=== PATIENT | female | born 1975 | race American Indian/Alaskan Native ===

== ENCOUNTER 2017-11-27 07:35 | Day surgery (SDC) | payer BC, OTHER ==
[~2017-11-27] VITALS: Ht 154.9 cm; Wt 136.1 kg
--- NOTE | ~2017-11-27 | OR ---
[facility] [address] [place], [place] [address] Draft DATE OF OPERATION: 11/27/2017 SURGEON: Joanie Mayorga MD PREOPERATIVE DIAGNOSES: Menometrorrhagia, morbid obesity. POSTOPERATIVE DIAGNOSES: Menometrorrhagia, morbid obesity, pending pathology. PROCEDURE: Attempted hysteroscopy, D and C. ANESTHESIA: General LMA. ESTIMATED BLOOD LOSS: Minimal. DRAINS: None. INDICATIONS AND FINDINGS: The patient is a 42-year-old female, 2, para 1, SAB 1, who is using the for control, who has been having abnormal bleeding for the last three years. She believes her periods were normal up until three years ago. At which point, then she did not have any bleeding for a year and then, but once the following year and then was had prolonged episodes of heavy bleeding. The patient is also morbidly obese with a BMI of over 50. At the time of surgery, exam under anesthesia revealed a probable normal-size uterus that was difficult secondary to her body habitus. Hysteroscopy was attempted, but the top of the uterus could not be evaluated given her morbid obesity and the difficulty reaching the top of the uterus. Hysteroscopy was then abandoned and D and C was done with a small amount of tissue found. DESCRIPTION OF PROCEDURE: The patient was prepped and draped in the dorsal lithotomy position. The [place] speculum was placed into the posterior cul-de-sac given her morbid obesity and the Karen was used to view the anterior lip of the cervix and was grasped with a single-tooth tenaculum. The cavity sounded to approximately 8 cm in length. The endocervical canal was then dilated to a #8 dilator. The MyoSure device was placed, but PATIENT NAME: EPIFANIO VERGARA OPERATIVE REPORT DATE OF : 73 REPORT #: [id number] PHYSICIAN: JOANIE MAYORGA MD PCP: CHENG CRUZ REPORT IS CONFIDENTIAL AND NOT TO BE RELEASED WITHOUT AUTHORIZATION [facility] [address] [place], [place] [address] Draft it could not be placed up to the top of the uterus as the kept it from going deep enough into the vagina. Because of this, cystoscopy was abandoned and a D and C was done using a sharp curette. Small amount of tissue was obtained with a sharp curette. I did feel that the top of the cavity was accessed using the curette, however. Following this, the tenaculum was removed. There was no evidence of ongoing bleeding from the tenaculum site. The weighted speculum was removed. The patient was taken to the recovery room in good condition. MD LE Marquez/SHAMAR /[id number] cc: [facility] Copies: [facility] ~ PATIENT NAME: EPIFANIO VERGARA OPERATIVE REPORT DATE OF : 73 REPORT #: [id number] PHYSICIAN: JOANIE MAYORGA MD PCP: CHENG CRUZ REPORT IS CONFIDENTIAL AND NOT TO BE RELEASED WITHOUT AUTHORIZATION
[~2017-11-27 07:35] MED LIST: CELEBREX200 MG PO; FOLIC ACID1 MG PO; IBU800 MG PO; IBUPROFEN800 MG PO; IRON18 MG PO; NORCO 10-325 T1 EACH PO; NORCO 5-325 TA1 EACH PO; ORTHO EVRA PAT1 EACH TD; OXYCODONE-ACET1 EAC1 PO; POTASSIUM CHLO20 ME1 PO; RANITIDINE HCL150 MG PO; VITAMIN D5000 UNIT PO; ZOFRAN ODT8 MG SL
--- NOTE | 2017-11-27 11:49 | NUR ---
11/27/17 1149 Bina Epperson 1136 PT ARRIVED TO PACU ON 10L VIA MASK, PT SITTING IN HIGH FOWLERS AND UPPER WHEEZE NOTED. PT REACTIVE TO TACTILE STIMULI AND ENCOURAGED TO DEEP BREATH AND COUGH. 1142 BREAHTING TREATMENT START BY SUPERINTENDENT REFUSE DISPOSAL. PT REORIENTED TO PACU. 1148 PT ABLE TO FOLLOW INSTRUCTIONS TO COUGG. PT DENIES NAUSEA AND PAIN. UPPER WHEEZE DECREASED.
--- NOTE | 2017-11-27 12:10 | NUR ---
ICED WATER GIVEN. CALL LIGHT W/IN REACH. FAMILY @ BS.
--- NOTE | 2017-11-27 12:17 | NUR ---
HARD COPY PRESCRIPTION GIVEN TO .
[2017-11-27] MEDS ORDERED: PROVERA10 MG PO (12:26)
--- NOTE | 2017-11-27 14:35 | NUR ---
LE 1405: PT UP TO BR W/RN STANDBY. PT AMBULATES WELL AND DENIES DIZZINESS. PT VOIDS 300 ML BLOOD TINGED URINE AND REQ ELEUTERIO PAD. PT REQ DC HOME. DC INSTRUCTIONS GIVEN IN PRESENCE OF FAMILY AND ALL VERBALIZE UNDERSTANDING. PT DRESSES SELF IN PRESENCE OF FAMILY AND TRANSFERS SELF TO AND THEN PERSONAL VEHICLE WELL.
== END 2017-11-27 14:20 | disposition home or self-care (01) ==
LOC: DS 07:35
PROVIDERS: Obstetrics & Gynecology
PROC: 0UDB7ZX Extraction of Endometrium, Via Natural or Artificial Opening, Diagnostic (ICD-10-PCS; principal; 2017-11-27 11:15)
DX: N85.8 Other specified noninflammatory disorders of uterus (principal); N92.1 Excessive and frequent menstruation with irregular cycle; M06.9 Rheumatoid arthritis, unspecified; K21.9 Gastro-esophageal reflux disease without esophagitis; G47.33 Obstructive sleep apnea (adult) (pediatric); G89.29 Other chronic pain; E66.01 Morbid (severe) obesity due to excess calories; Z87.891 Personal history of nicotine dependence; Z68.43 Body mass index [BMI] 50.0-59.9, adult; Z79.899 Other long term (current) drug therapy
CPT/HCPCS: 00952; J1100; J1885; J2250; J2405; J2704; J2765; J3010; J7120

== ENCOUNTER 2018-06-23 06:54 | Emergency (ER) | payer BC, OTHER ==
[~2018-06-23] VITALS: Ht 154.9 cm; Wt 127.0 kg
--- OUTSIDE RECORDS SUMMARY | ~2018-06-23 | XMS | Clinical Summary ---
Demographics + + + | Address | [address] | | | [place] [address] | + + + | Home Phone | | + + + | Preferred Language | Unknown | + + + | Marital Status | | + + + | Congregational Affiliation | 1041 | + + + | Race | Unknown | + + + | Ethnic Group | Unknown | + + + Author + + + | Author | [facility] | | | and [place] | + + + | Organization | [facility] | | | and [place] | + + + | Address | Unknown | + + + | Phone | Unavailable | + + + Support + + +---------+ + | Name | Relationship | Address | Phone | + + +---------+ + | Paul Monroy | ECON | Unknown | | + + +---------+ + | Jessica Tavarez | ECON | Unknown | | + + +---------+ + Care Team Providers + +------+ + | Care Senior Professional Services Consultant Name | Role | Phone | + +------+ + | Keiran Clay PA-C | PP | | + +------+ + Allergies No Known Allergies Current Medications + + +-------+---------+------+------+-------+ | Prescription | Sig. | Disp. | Refills | Star | End | Statu | | | | | | t | Date | s | | | | | | Date | | | + + +-------+---------+------+------+-------+ | ferrous sulfate | Take 325 mg by mouth | | | 09/1 | | Activ | | 325 mg tablet | 3 times daily (with | | | 4/20 | | e | | | meals). | | | 12 | | | + + +-------+---------+------+------+-------+ | fluocinonide | apply to affected | | | 09/ | | Activ | | (LIDEX) 0.05 % | area two times daily | | | 4/20 | | e | | ointment | | | | 12 | | | + + +-------+---------+------+------+-------+ | folic acid 1 mg | Take 1 mg by mouth | | | 09/1 | | Activ | | tablet | Daily. | | | 4/20 | | e | | | | | | 12 | | | + + +-------+---------+------+------+-------+ | multivitamin | | | | 09/1 | | Activ | | (THERAGRAN) per | | | | 4/20 | | e | | tablet | | | | 12 | | | + + +-------+---------+------+------+-------+ | B Complex Vitamins | 1 by mouth two times | | | 05/09 | | Activ | | (B COMPLEX-B12) | daily | | | 420 | | e | | TABS | | | | 12 | | | + + +-------+---------+------+------+-------+ | Cholecalciferol | Take 2,000 Units by | | | 05/09 | | Activ | | ( VITAMIN D3) 2000 | mouth 2 times daily. | | | 4/20 | | e | | UNITS CAPS | | | | 12 | | | + + +-------+---------+------+------+-------+ | naproxen | Take 500 mg by mouth | | | | | Activ | | (NAPROSYN) 500 mg | 2 times daily (with | | | | | e | | tablet | breakfast & | | | | | | | | dinner). | | | | | | + + +-------+---------+------+------+-------+ Active Problems + + + | Problem | Noted Date | + + + | FIBROMYALGIA | 05/22/2011 | + + + | SPINAL STENOSIS, LUMBAR | | + + + | LUMBAR DISC DISPLACEMENT | | + + + | DEGENERATIVE JOINT DISEASE, LUMBAR SPINE | | + + + | DEGENERATIVE DISC DISEASE, LUMBAR SPINE | | + + + | BACK PAIN, LUMBAR | | + + + | SOMATIC DYSFUNCTION, SPINE, SACRAL | | + + + | THORACIC/LUMBOSACRAL NEURITIS/RADICULITIS UNSPEC | | + + + Family History + + +------+ + | Medical History | Relation | Name | Comments | + + +------+ + | Other (see comment) | Maternal | | Alcoholism | | | Grandfath | | | | | er | | | + + +------+ + | Other (see comment) | Maternal | | Diabetes, Arthritis | | | Grandmoth | | | | | er | | | + + +------+ + | Other (see comment) | Maternal | | Alcoholism | | | Uncle | | | + + +------+ + | Other (see comment) | Mother | | Diabetes, Cancer on the mother's side of | | | | | the family, | + + +------+ + + +------+--------+ + | Relation | Name | Status | Comments | + +------+--------+ + | Maternal Grandfather | | | | + +------+--------+ + | Maternal Grandmother | | | | + +------+--------+ + | Maternal Uncle | | | | + +------+--------+ + | Mother | | | | + +------+--------+ + Social History + +-------+ +--------+------+ | Tobacco Use | Types | Packs/Day | Years | Date | | | | | Used | | + +-------+ +--------+------+ | Never Assessed | | | | | + +-------+ +--------+------+ + +---+---+---+ | Smokeless Tobacco: | | | | | Never Used | | | | + +---+---+---+ + + +---------+ + | Alcohol Use | Drinks/We | oz/Week | Comments | | | ek | | | + + +---------+ + | Yes | | | Socially | + + +---------+ + + + + | Sex Assigned at | Date Recorded | | | | + + + | Not on file | | + + + Last Filed Vital Signs + + + + | Vital Sign | Reading | Time Taken | + + + + | Blood Pressure | 108/74 | 01/22/2013 1439 PDT | + + + + | Pulse | 83 | 01/22/20131438 PDT | + + + + | Temperature | - | - | + + + + | Respiratory Rate | 16 | 01/22/20131438 PDT | + + + + | Oxygen Saturation | 98% | 01/22/20131438 PDT | + + + + | Inhaled Oxygen | - | - | | Concentration | | | + + + + | Weight | 108.9 kg (240 lb) | 01/22/20131438 PDT | + + + + | Height | 156.2 cm (5' 1.5") | 01/22/20131438 PDT | + + + + | Body Mass Index | 44.61 | 01/22/20131438 PDT | + + + + Plan of Treatment + + + + + | Health Maintenance | Due Date | Last Done | Comments | + + + + + | Vaccine: | | | | | Dtap/Tdap/Td (1 - | 3 | | | | Tdap) | | | | + + + + + | Cervical Cancer | | | | | Screening (Pap) | 4 | | | + + + + + | Vaccine: Influenza | | | | | (#1) | 8 | | | + + + + + Results Not on filefrom Last 3 Months Insurance + +--------+ +--------+ +---------+ | Payer | Benefi | Subscriber | Type | Phone | Address | | | t Plan | ID | | | | | | / | | | | | | | Group | | | | | + +--------+ +--------+ +---------+ | HEALTHCOMP | HEALTH | [id number] | PPO | [phone] | | | COMP | | | [phone] | | | | FIRST | | | | | | | CHOICE | | | | | + +--------+ +--------+ +---------+ | HEALTH | IHS | [id number] | Indemn | | | | SERVICE | YELLOW | | ity | | | | | HAWK | | | | | + +--------+ +--------+ +---------+ + +--------+ +--------+ + + | Guarantor Name | Accoun | Relation to | Date | Phone | Billing Address | | | t Type | Patient | of | | | | | | | | | | + +--------+ +--------+ + + | BEBE ROCHA | Person | Self [birth year] | Work: | [address] | | [place] | [address] | | 1975 | [phone] | [place] [address] | | | hai | | | [phone] Home: | | | | | | | | | | | | | | [phone] | | | | | | | [phone] | | + +--------+ +--------+ + +
--- OUTSIDE RECORDS SUMMARY | ~2018-06-23 | XMS | Clinical Summary ---
Demographics + + + | Address | [address] | | | [place] [address] | + + + | Home Phone | | + + + | Preferred Language | Unknown | + + + | Marital Status | | + + + | Evangelical Affiliation | 1041 | + + + | Race | Unknown | + + + | Ethnic Group | Unknown | + + + Author + + + | Author | [facility] | | | and [place] | + + + | Organization | [facility] | | | and [place] | [...] Team Providers + +------+ + | Care Patient Monitor Name | Role | Phone | + +------+ + | Kieran Clay PA-C | PP | | + [...] +--------+ +---------+ | HEALTHCOMP | HEALTH | [id number] | PPO | [phone] | | | | COMP | | | [phone] | | | | FIRST | | | | | | | CHOICE | | | | | + +--------+ +--------+ +---------+ | HEALTH | IHS | [id number] | Indemn | | | | SERVICE [...] [place] | [address] | | 1975 | [phone] | [place] [address] | | | hai | | | [phone] Home: | | | | | | | | | | | | | | [phone] | | | | | | | [phone] | | + +--------+ +--------+ + +
[~2018-06-23 06:54] MED LIST changes: +PROVERA10 MG PO
--- OUTSIDE RECORDS SUMMARY | 2018-06-23 06:56 | XMS ---
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 Roya VISIT COUNT (12 MO.) [address] [facility] TOTAL 1 NOTE: Visits indicate total known visits. ED/UCC VISIT TRACKING (12 MO.) 06/23/2018 06:[address] [facility] [place] TYPE: Emergency COMPLAINT: - BACK PAIN/NON INJURY INPATIENT VISIT TRACKING (12 MO.) No inpatient visits to display in this time frame [email or web address]
[2018-06-23] MEDS ORDERED: PREDNISONE20 MG PO (09:56)
[2018-06-23] MEDS ORDERED: CYCLOBENZAPRINE10 MG PO (09:56)
== END 2018-06-23 10:15 | disposition home or self-care (01) ==
LOC: ED 06:54
DX: M54.5 Low back pain (principal); G89.29 Other chronic pain; Z90.49 Acquired absence of other specified parts of digestive tract; Z87.891 Personal history of nicotine dependence; Z79.899 Other long term (current) drug therapy
CPT/HCPCS: 81001; 96372; 99283-25; J1885; J7512

== ENCOUNTER 2020-06-03 12:05 | Day surgery (SDC) | payer BC, OTHER ==
[~2020-06-03] VITALS: Ht 154.9 cm; Wt 127.3 kg
[~2020-06-03 12:05] MED LIST changes: +CYCLOBENZAPRINE10 MG PO; +PREDNISONE20 MG PO
--- NOTE | 2020-06-03 13:52 | NUR ---
06/03/20 1352 Lisha Brand 5857- PT ARRIVES TO PACU AWAKE AND TALKING ABOUT HER DAUGHTER. PT REPORTS NO PAIN OR NAUSEA. RESP EVEN AND UNLABORED. OXYGEN SAT HIGH 90'S TO 100% ON RA.
--- NOTE | 2020-06-03 14:31 | EKG ---
[facility] [address] [facility] [place], [place] [address] Signed Normal sinus rhythm Low voltage QRS Inferior-posterior infarct , age undetermined Abnormal ECG No previous ECGs available Confirmed by ALISSA GROVES DO ([id number]) on 06/03/2020 2:31:37 PM Electronically Signed By: ALISSA GROVES DO 06/03/20 1431 PATIENT NAME: EPIFANIO VERGARA Electrocardiogram DATE OF : 73 PHYSICIAN: ALISSA GROVES DO REPORT #: [id number] REPORT IS CONFIDENTIAL AND NOT TO BE RELEASED WITHOUT AUTHORIZATION
--- NOTE | 2020-06-04 17:20 | OR ---
[facility] [address] [place], [place] [address] Signed DATE OF OPERATION: 06/03/2020 SURGEON: Didier Lake MD PREOPERATIVE DIAGNOSES: 1. Epigastric abdominal pain. 2. Gastroesophageal reflux disease. POSTOPERATIVE DIAGNOSES: 1. Small hiatal hernia. 2. Mild diffuse gastritis. PROCEDURES: EGD with CLOtest and biopsies of the antrum. ESTIMATED BLOOD LOSS: None. INDICATIONS: Bebe is a 45-year-old female with a body mass index of 55. She also requires daily narcotics for her chronic low back pain. She was having trouble with epigastric abdominal pain and acid reflux. She responded quite nicely to omeprazole. Her gallbladder and her appendix were removed in 1999. Because of ongoing symptoms, particularly when lying supine, she was asked to see me for upper endoscopy. This would be her 1st endoscopy. In the office, I gave her a pamphlet on upper endoscopy and we looked at it together in detail. She understands the nature of the test along with the risks including, but not limited to gas bloating, crampy abdominal pain, bleeding, perforation requiring surgery, and missed diagnosis. We also discussed the need for IV conscious sedation. Given her very round full face, heavy jaw, very thick neck, and heavy chest and abdomen, we asked that an anesthesia provider help us with increased monitoring sedation with propofol. That proved to be a mares decision. She had expressed understanding and wished to proceed. PROCEDURE NOTE: Bebe was taken into our endoscopy suite and placed in a supine semi-recumbent position. A bite block was utilized for the case. She was given IV sedation with propofol per our nurse spa host. She required constant airway control and management per our nurse spa host. The adult gastroscope was introduced and advanced under direct visualization of the camera out into the third portion of the duodenum, under direct visualization of the camera without difficulty. The duodenum and pyloric channel were Electronically Signed By: DIDIER LAKE MD 06/04/20 1720 PATIENT NAME: BEBE VERGARA OPERATIVE REPORT DATE OF : 73 REPORT #: [id number] PHYSICIAN: DIDIER LAKE MD PCP: [facility] REPORT IS CONFIDENTIAL AND NOT TO BE RELEASED WITHOUT AUTHORIZATION [facility] [address] [place] [address] Signed unremarkable. The stomach showed mild diffuse erythematous changes. We took a biopsy of the antrum for CLOtest as well as pathologic review. Upon retroflexion of scope, she appears to have a very small hiatal hernia. The scope was withdrawn up through the area of the GE junction, which was compliant without stricture. There were no gastric or esophageal varices. She has minimal disruption to the Z-line. There was no Heart's mucosa. No distal esophagitis. The middle and upper esophagus were unremarkable. After this, the gas was suctioned out and the gastroscope removed. Bebe tolerated her procedure quite well. RECOMMENDATIONS: Bebe will follow up in my office in 7 to 14 days to review her results. Didier Lake MD ALB/MODL /[id number] cc: Chart Filed Incomplete Lisha Lake MD Copies: CHART FILED INCOMPLETE LISHA CRUZ ANDREW L MD ~ Electronically Signed By: DIDIER LAKE MD 06/04/20 1720 PATIENT NAME: BEBE VERGARA OPERATIVE REPORT DATE OF : 73 REPORT #: [id number] PHYSICIAN: DIDIER LAKE MD PCP: [facility] REPORT IS CONFIDENTIAL AND NOT TO BE RELEASED WITHOUT AUTHORIZATION
--- NOTE | 2020-06-07 12:15 | PATH ---
[facility] [address] [place], [place] [address] Signed SPECIMEN(S): A ANTRUM/PYLORUS BIOPSY SPECIMEN SOURCE: A. ANTRUM/PYLORUS BIOPSY CLINICAL HISTORY: Esophagogastroduodenoscopy. Preop: Epigastric abdominal pain, acid reflux. Postop: Gastritis, small hiatal hernia. MICROSCOPIC DESCRIPTION: Histologic sections of all submitted blocks are examined by light microscopy. These findings, together with the gross examination, support the pathologic diagnosis. FINAL PATHOLOGIC DIAGNOSIS: Antrum / pylorus, biopsy: - Mild to moderate non-specific chronic gastritis. - Negative for Helicobacter pylori by HE. - Negative for intestinal metaplasia, dysplasia, or malignancy. DS:[facility]:C2NR GROSS DESCRIPTION: The specimen, labeled "DW," and designated on the requisition "antrum/pylorus biopsy," is received in formalin and consists of one fragment of pink-frank tissue (0.3 x 0.2 x 0.2 cm). The specimen is submitted entirely in cassette (A1). AC (under the direct supervision of a pathologist The Gross Description was prepared using a voice recognition system. The report was reviewed for accuracy; however, sound-alike word errors, addition and/or deletions may occur. If there is any question about this report, please contact Client Services. PERFORMING LABORATORY: The technical component was performed by [facility], [address] [place] [id number] (Group Leader [employer] Processing: Jennifer Cantu MD; CLIA# [id number]). Professional interpretation was performed by [facility], [facility], [address] [place] [address] (CLIA#: [id number]). Diagnostician: Dc Santos MD Pathologist Electronically Signed 06/07/2020 PATIENT NAME: EPIFANIO VERGARA PATHOLOGY DATE OF : 73 REPORT #: [id number] PHYSICIAN: [facility] PCP: [facility] REPORT IS CONFIDENTIAL AND NOT TO BE RELEASED WITHOUT AUTHORIZATION [address] [place], [place] [address] Signed Copies: ~ PATIENT NAME: EPIFANIO VERGARA PATHOLOGY DATE OF : 73 REPORT #: [id number] PHYSICIAN: [facility] PCP: [facility] REPORT IS CONFIDENTIAL AND NOT TO BE RELEASED WITHOUT AUTHORIZATION
== END 2020-06-03 14:20 | disposition home or self-care (01) ==
LOC: OPS 12:05 → DS 12:05 → OPS 13:00
PROVIDERS: ATTEND Colon & Rectal Surgery
PROC: 0DB68ZZ Excision of Stomach, Via Natural or Artificial Opening Endoscopic (ICD-10-PCS; principal; 2020-06-03 13:00)
DX: K21.9 Gastro-esophageal reflux disease without esophagitis (principal); K44.9 Diaphragmatic hernia without obstruction or gangrene; K29.50 Unspecified chronic gastritis without bleeding; G89.29 Other chronic pain; M54.5 Low back pain; E66.9 Obesity, unspecified; R06.83 Snoring; R06.02 Shortness of breath; Z90.49 Acquired absence of other specified parts of digestive tract; Z79.891 Long term (current) use of opiate analgesic; Z80.0 Family history of malignant neoplasm of digestive organs; Z68.43 Body mass index [BMI] 50.0-59.9, adult
CPT/HCPCS: 84703; 86677; 93005; 93010; J2001; J2704; J7121

== ENCOUNTER 2021-12-28 21:37 | Emergency (ER) | payer BC, OTHER ==
[~2021-12-28] VITALS: Ht 154.9 cm; Wt 145.6 kg
--- OUTSIDE RECORDS SUMMARY | 2021-12-28 21:39 | XMS ---
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 EEdwina VISIT COUNT (12 MO.) 1 [facility]o TOTAL 1 NOTE: Visits indicate total known visits. ED/UCC VISIT TRACKING (12 MO.) 12/28/2021 21:37 [facility] [place] TYPE: Emergency COMPLAINT: - SOB, MUSCLE CRAMPS INPATIENT VISIT TRACKING (12 MO.) No inpatient visits to display in this time frame [email or web address]
[2021-12-28] MEDS ORDERED: PAXLOVID 300-11 EACH PO (21:54)
[2021-12-28] MEDS ORDERED: OMEPRAZOLE40 MG PO (21:54)
[2021-12-29] MEDS ORDERED: CYCLOBENZAPRINE10 MG PO ×2 (00:33→01:04)
== END 2021-12-29 01:11 | disposition home or self-care (01) ==
LOC: ED 21:37
DX: U07.1 COVID-19 (principal); M62.838 Other muscle spasm; Z79.899 Other long term (current) drug therapy
CPT/HCPCS: 36415; 71045; 80053; 81001; 82553; 83690; 83735; 85025; 99285-25; J7121

== ENCOUNTER 2024-12-25 06:30 | Day surgery (SDC) | payer BC, OTHER ==
[~2024-12-25] VITALS: Ht 154.9 cm; Wt 144.9 kg
[~2024-12-25 06:30] MED LIST changes: +LACTATED RINGER'S 1,000 ML IV SCH; +OMEPRAZOLE40 MG PO; +PAXLOVID 300-11 EACH PO
[2024-12-25 06:48] VITALS: BP 152/79
[2024-12-25] MEDS ORDERED: LIDOCAINE HCL 1% 5 ML SDV INJ ONE (07:00)
[2024-12-25] MEDS ORDERED: IBLOOD GLUCOSE TEST STRIP 1 EA TEST VI PRN ×2 (07:00→10:00)
[2024-12-25] MEDS ORDERED: CEFAZOLIN SODIUM 3 GM in SODIUM CHLORIDE 0.9% 100 ML IV SCH (07:00)
[2024-12-25] MEDS ORDERED: KETOROLAC TROMETHAMINE 30 MG/ML VIAL ONE ×2 (07:43→08:17)
[2024-12-25] MEDS ORDERED: fentaNYL citrate 100 MCG/2 ML VIAL ONE (08:16)
[2024-12-25] MEDS ORDERED: ACETAMINOPHEN 1,000 MG/100 ML VIAL ONE (08:16)
[2024-12-25] MEDS ORDERED: LIDOCAINE HCL 2% 5 ML SDV ONE (08:16)
[2024-12-25] MEDS ORDERED: HYDROCODONE/ACETA 5/325 TAB PO PRN (09:15)
[2024-12-25] MEDS ORDERED: MIDAZOLAM HCL 2 MG/2 ML VIAL ONE (09:22)
[2024-12-25] MEDS ORDERED: DEXAMETHASONE SOD PHOS 4 MG/ML VIAL ONE (09:40)
[2024-12-25] MEDS ORDERED: PROCHLORPERAZINE EDISYLATE 10 MG/2 ML VIAL IV PRN (10:00)
[2024-12-25] MEDS ORDERED: HYDROmorphone HCL 1 MG/ML SYR IV PRN (10:00)
[2024-12-25] MEDS ORDERED: fentaNYL citrate 50 MCG/ML SDV IV PRN (10:00)
[2024-12-25] MEDS ORDERED: NALOXONE HCL 0.4 MG SYR IV PRN (10:00)
[2024-12-25] MEDS ORDERED: DICLOFENAC SODI75 MG PO (10:06)
[2024-12-25] MEDS ORDERED: HYDROCODON-ACE1 EA10 PO (10:06)
--- NOTE | 2024-12-25 10:17 | NUR ---
12/25/24 1017 Sheets,Bina 1007 PT ARRIVED TO PACU ON 6L VIA MASK LARGE AMOUNT OF SNORING NOTED WITH UPPER OBSTRUCTION NOTED OFF AND ON, PT WAKES HERSELF AND REORIENTED TO PACU. DEEP BREATHING ENCOURAGED. PT EASILY FALLS BACK TO SLEEP. 1011 HOB INCREASED, O2 REMOVED. ICE PLACED ON KNEE AND DENIES CONCERNS WITH TOLERABLE PAIN OF 3/10.
[2024-12-25 10:31] VITALS: BP 123/63
--- NOTE | 2024-12-25 10:39 | NUR ---
1030- RECIEVED REPORT FROM ARMHOLE SEWER. VITALS, PAIN, N/V NOTED. PLAN TO START WITH DRINKING FLUIDS TOLLERATED AND THEN PROVIDE ORAL PAIN MEDS WITH SNACK. PT AGREES TO PLAN. NO OTHER NEEDS AT THIS TIME.
[2024-12-25 11:50] VITALS: BP 128/65
--- NOTE | 2024-12-25 11:52 | NUR ---
1150- HOURLY ROUNDING COMPLETED. PT PRESENTS ASLEEP BUT ARROUSABLE. VITALS AND PAIN NOTED. PAIN NOW DECREASED PER PT REPORT. PT HAS TOLLERATED EATING AND DRINKING FLUIDS. PT ASKED "CAN I TRY IN A FEW MINUTES" WHEN ASKED IF THEY NEEDED TO USE THE RESTROOM. NO OTHER NEEDS OR COMPLAINTS AT THIS TIME.
[2024-12-25 12:56] VITALS: BP 146/80
--- NOTE | 2024-12-25 13:00 | NUR ---
1250- PT UP TO VOID. VOLUME NOTED. PT READY TO GET DRESSED. DISCHARGE INFO GIVEN AND PT VERBALIZED UNDERSTANDING. 1305- PT GETTING DRESSED NOW.
--- NOTE | 2024-12-25 13:36 | NUR ---
1320- AFTER DRESSING PT REQUESTED TO USE RESTROOM ONE MORE TIME. PT AMBULATED WITHOUT ISSUE OR DIFFICULTY. 1323- PT SAT IN WHEELCHAIR. TAKEN OUT TO CAR AND SELF TRANSFERRED WITHOUT ISSUE.
--- NOTE | 2024-12-25 16:52 | OR ---
[facility] [address] [place], [place] [address] Signed DATE OF OPERATION: 12/25/2024 SURGEON: Mariano Doty MD PREOPERATIVE DIAGNOSIS: Medial meniscus tear, left knee. POSTOPERATIVE DIAGNOSIS: Medial meniscus tear, left knee. PROCEDURE PERFORMED: Left knee arthroscopy with partial medial meniscectomy. TRANSITION ASSISTANT: None. ANESTHESIA: General. BLOOD LOSS: Minimal. BRIEF HISTORY: Bebe is a 49-year-old female with pain and catching in her knee. MRI was consistent with a large posteromedial meniscus tear. Risks, benefits, and alternatives were discussed with her and she elected to proceed. Once consent was obtained, she was taken to the operating room. After adequate anesthesia, she was placed on operating room table. The right leg was flexed, abducted, and externally rotated on a well-padded leg nuñez. The leg was placed in well-padded proximal thigh leg nuñez with no tourniquet. The leg was then prepped and draped in a standard sterile fashion. Standard inferolateral and superolateral portals were made after injecting all three with a 0.25% Marcaine with epinephrine. The scope was introduced into the knee. ARTHROSCOPIC FINDINGS: The patella showed good tracking with grade 2 chondromalacia. Medial and lateral gutters were clear. ACL and PCL were intact. Lateral compartment showed diffuse grade 2 chondromalacia to the femur, grade 1 to the tibia. The meniscus was intact. The medial meniscus was noted to be torn posteriorly extending around past the corner. The medial femoral condyle had a large full-thickness cartilage lesion measuring 3 cm x 3 cm in the midportion of the medial femoral condyle. Electronically Signed By: MARIANO DOTY MD 12/25/24 1652 PATIENT NAME: BEBE VERGARA OPERATIVE REPORT DATE OF : 73 REPORT #: [id number] PHYSICIAN: MARIANO DOTY MD PCP: CHENG CRUZ PAC REPORT IS CONFIDENTIAL AND NOT TO BE RELEASED WITHOUT AUTHORIZATION [facility] [address] [facility] [place], [place] [address] Signed DESCRIPTION OF OPERATION: The straight and curved biters were used to trim the meniscus tear back to stable rim after establishing the medial portal using a spinal needle. The debris was evacuated. The meniscus was smoothed using the shaver. The chondral flaps of the medial femoral condyle were smoothed out as well. All debris was evacuated once again and the scope was withdrawn. Portals were closed with 3-0 nylon and the knee was injected with 60 mg Toradol. The wounds were dressed with Adaptic, ABD, and Chris wrap. She tolerated the procedure well. All sponge, needle, and instrument counts were correct. Mariano Doty MD BA/MODL /[id number] Copies: ~ Electronically Signed By: MARIANO DOTY MD 12/25/24 1652 PATIENT NAME: BEBE VERGARA OPERATIVE REPORT DATE OF : 73 REPORT #: [id number] PHYSICIAN: MARIANO DOTY MD PCP: CHENG CRUZ PAC REPORT IS CONFIDENTIAL AND NOT TO BE RELEASED WITHOUT AUTHORIZATION
[2024-12-25] MEDS ORDERED: DICLOFENAC SOD 75 MG TABEC PO SCH (21:00)
== END 2024-12-25 13:23 | disposition home or self-care (01) ==
LOC: DS 06:30
PROVIDERS: ATTEND Specialist
PROC: 0SBD4ZZ Excision of Left Knee Joint, Percutaneous Endoscopic Approach (ICD-10-PCS; principal; 2024-12-25 09:20)
DX: S83.242A Other tear of medial meniscus, current injury, left knee, initial encounter (principal); W19.XXXA Unspecified fall, initial encounter; M94.262 Chondromalacia, left knee; Z87.891 Personal history of nicotine dependence; Z90.49 Acquired absence of other specified parts of digestive tract
CPT/HCPCS: J0131; J0688; J1100; J1885; J2003; J2250; J2405; J2704; J3010; J7121